=== PATIENT | male | born 1980 | race Two or more races ===

== ENCOUNTER 2016-08-28 07:54 | Emergency (ER) | payer OTHER ==
[~2016-08-28] VITALS: Ht 182.9 cm; Wt 78.0 kg
[2016-08-28 07:58] VITALS: Ht 182.9 cm; Wt 78.0 kg
[2016-08-28 08:52] LABS: BASOPHILS % 0.2 % (0.0-2.0); EOSINOPHILS # 0.3 10^3/ul (0.0-0.5); EOSINOPHILS % 5.5 % (0.0-7.0); HEMOGLOBIN 14.9 g/dl (14.0-18.0); LYMPHOCYTES # 1.5 10^3/ul (0.8-2.9); LYMPHOCYTES % 26.1 % (15.0-51.0); MEAN CORPUSCULAR HEMOGLOBIN 31.5 pg (29.0-33.0); MEAN CORPUSCULAR HGB CONC 35.5 g/dl (32.0-37.0); MEAN CORPUSCULAR VOLUME 88.8 fl (82.0-101.0); MEAN PLATELET VOLUME 10.6 fl (7.4-10.4); MONOCYTE # 0.5 10^3/ul (0.3-0.9); MONOCYTES % 8.4 % (0.0-11.0); NEUTROPHIL # 3.3 10^3/ul (1.6-7.5); NEUTROPHILS % 59.6 % (39.0-77.0); PLATELET COUNT 212 10^3/UL (140-415); RED BLOOD COUNT 4.73 10^6/ul (4.70-6.10); RED CELL DISTRIBUTION WIDTH 11.8 % (11.5-14.5); WHITE BLOOD COUNT 5.6 10^3/ul (4.8-10.8)
[2016-08-28 09:24] LABS: ALANINE AMINOTRANSFERASE 26 IU/L (13-69); ALBUMIN 3.9 g/dl (3.3-4.9); ALBUMIN/GLOBULIN RATIO 1.44; ALKALINE PHOSPHATASE 69 IU/L (42-121); ANION GAP 16 (8-16); ASPARTATE AMINO TRANSFERASE 16 IU/L (15-46); BLOOD UREA NITROGEN 9 mg/dl (7-20); CALCIUM 8.9 mg/dl (8.4-10.2); CARBON DIOXIDE 26 mmol/L (21-31); CHLORIDE 106 mmol/L (97-110); CREATININE 0.69 mg/dl (0.61-1.24); ETHANOL < 10.0 mg/dl; GLUCOSE 95 mg/dl (70-220); POTASSIUM 3.9 mmol/L (3.5-5.1); SODIUM 144 mmol/L (135-144); TOTAL PROTEIN 6.6 g/dl (6.1-8.1)
--- NOTE | 2016-08-28 09:38 | ERA ---
ER Documentation Chief Complaint Date/Time DATE: 08/28/16 TIME: 09:36 Chief Complaint PT SAYS " I FEEL LIKE HURTING MYSELF OR SOMEONE ELSE " HPI 36-year-old male unknown psychiatric diagnosis possibly bipolar disorder who presents to the emergency room with 24 hours of suicidal thoughts with a plan to jump into traffic. Patient denies any drugs or alcohol he states the symptoms are moderate to severe and requires hospitalization. He denies any fevers, chills, headache, chest pain, shortness of breath. ROS All systems reviewed and are negative except as per history of present illness. Allergies Allergies: Uncoded Allergies: NKDA (Allergy, 08/29/10) PMhx/Soc Medical and Surgical Hx: pt denies Medical Hx, pt denies Surgical Hx History of Surgery: No Anesthesia Reaction: No Hx Neurological Disorder: No Hx Respiratory Disorders: No Hx Cardiac Disorders: No Hx Psychiatric Problems: No Hx Miscellaneous Medical Probl: No Hx Alcohol Use: No Hx Substance Use: No Hx Tobacco Use: Yes Smoking Status: Current every day smoker FmHx Family History: No diabetes Physical Exam Vitals Vital Signs Date Time Temp Pulse Resp B/P Pulse Ox O2 Delivery O2 Flow Rate FiO2 08/28/16 07:58 98.1 78 18 122/67 98 Physical Exam General: Well developed, well nourished, no acute distress Head: Normocephalic, atraumatic. Eyes: Pupils equally reactive, EOM intact ENT: Moist mucous membranes Neck: Supple, no lymphadenopathy Respiratory: Lungs clear bilaterally, no distress Cardiovascular: RRR, no murmurs, rubs, or gallops Abdominal: Soft, non-tender, non-distended, no peritoneal signs : Deferred MSK: No edema, no unilateral swelling, 5/5 strength Neurologic: Alert and oriented, moving all extremities, normal speech, no focal weakness, no cerebellar signs Skin: No rash Psych: Flattened affect, avoiding eye contact, suicidal thoughts with plan Result Diagram: 08/28/1640 08/28/16 0840 Results 24 hrs Laboratory Tests Test 08/28/16 08:40 White Blood Count 5.610^3/ul Red Blood Count 4.7310^6/ul Hemoglobin 14.9g/dl Hematocrit 42.0% Mean Corpuscular Volume 88.8fl Mean Corpuscular Hemoglobin 31.5pg Mean Corpuscular Hemoglobin Concent 35.5g/dl Red Cell Distribution Width 11.8% Platelet Count 17912^3/UL Mean Platelet Volume 10.6fl Neutrophils % 59.6% Lymphocytes % 26.1% Monocytes % 8.4% Eosinophils % 5.5% Basophils % 0.2% Nucleated Red Blood Cells % 0.0/100WBC Neutrophils # 3.310^3/ul Lymphocytes # 1.510^3/ul Monocytes # 0.510^3/ul Eosinophils # 0.310^3/ul Basophils # 0.010^3/ul Nucleated Red Blood Cells # 0.010^3/ul Sodium Level 144mmol/L Potassium Level 3.9mmol/L Chloride Level 106mmol/L Carbon Dioxide Level 26mmol/L Anion Gap 16 Blood Urea Nitrogen 9mg/dl Creatinine 0.69mg/dl Glucose Level 95mg/dl Calcium Level 8.9mg/dl Total Bilirubin 0.0mg/dl Direct Bilirubin 0.00mg/dl Indirect Bilirubin 0.0mg/dl Aspartate Amino Transf (AST/SGOT) 16IU/L Alanine Aminotransferase (ALT/SGPT) 26IU/L Alkaline Phosphatase 69IU/L Total Protein 6.6g/dl Albumin 3.9g/dl Globulin 2.70g/dl Albumin/Globulin Ratio 1.44 Ethyl Alcohol Level < 10.0mg/dl Procedures/MDM LAB INTERPRETATION: No acute process MEDICAL DECISION MAKING: The patient's presentation is consistent with underlying psychiatric illness and likely exacerbation of this illness and/or psychosis. I have a much lower clinical concern for delirium or acute organic pathology such as toxicologic, metabolic, ischemic, intracranial hemorrhage, infectious process. However, we must rule this out prior to relying a diagnosis of underlying psychiatric illness. The patient's workup will include medical screening examination, laboratory analysis, and diagnostic imaging such as EKG, chest x-ray or CT brain as indicated. If the patient's medical examination and laboratory analysis do not reveal acute organic pathology the patient will be medically cleared for psychiatric evaluation. ER COURSE: The patient's laboratory analysis, diagnostic imaging do not suggest an acute organic pathology. At this time I believe the patient's presentation is very consistent with underlying psychiatric illness. The patient is medically cleared for psychiatric evaluation. I kept the patient and/or family informed of laboratory and diagnostic imaging results throughout the emergency room course. CONSULTATION: Psychiatric consultation: Telemetry medicine psychiatry has been consulted on this case to evaluate the patient for possible acute psychiatric illness that would require inpatient hospitalization. DISPOSITION PLAN: Pending psychiatric evaluation Departure Diagnosis: Primary Impression: Suicidal ideation Condition: PRITI Hein MD Aug 28, 2016 09:38
[2016-08-28 12:09] LABS: BARBITURATES Negative (NEGATIVE)
[2016-08-28 12:10] LABS: BENZODIAZEPINES Negative (NEGATIVE); CANNABINOIDS Positive (NEGATIVE); COCAINE Negative (NEGATIVE); OPIATES Negative (NEGATIVE)
--- NOTE | 2016-08-28 12:48 | PSY ---
Date/Time of Note Date/Time of Note DATE: 08/28/16 TIME: 12:44 Psychiatric Subjective Eval Consent Pt consented to telemedicine: Yes Subjective Evaluation Patient location: emergency Chief Complaint: PT SAYS " I FEEL LIKE HURTING MYSELF OR SOMEONE ELSE " Reason for consult: Suicidal Ideation History of present illness d/w Dr Pérez 36 yo single unemployed homeless male with hx BIpolar d/o presents to ED with active SI and a plan to run into traffic. Depressed, hopeless, helpless, sad, despondent due to homelessness. + command Ah telling him to kill himself, paranoia. No meds for 4 months, since the last admission. No VH. No HI Poor lseep, poor appetite, anxiety, anger. Past psychiatric history prior inpt Hospitalization: Suicidal Attempt(s) Family History denies Medical history Problems Medical Problems: (1) Suicidal ideation Status: Acute Allergies: Coded Allergies: No Known Allergy (Unverified , 08/28/16) Substance Abuse Substance abuse history: Yes Prior substance abuse treatmen: No Social History Marital status: single Level of education: HS DPA/Conservatorship: No Occupation/Residential: unemployed Psychiatric Objective Eval Mental Status Examination: Appearance: Disheveled Eye Contact: Fair Psychomotor Activity: Normal Behavior: Cooperative Speech: Clear AFFECT: Depressed Mood: Irritable Though Process: Linear Thought Content: Hallucinations Suicidal: Yes Homicidal: No On 72 hour hold: No Orientation: x4 Cognition: Alert Insight: Impared Judgement: Impared Laboratory Results Laboratory Tests Test 08/28/16 08:40 08/28/16 11:10 White Blood Count 5.610^3/ul Red Blood Count 4.7310^6/ul Hemoglobin 14.9g/dl Hematocrit 42.0% Mean Corpuscular Volume 88.8fl Mean Corpuscular Hemoglobin 31.5pg Mean Corpuscular Hemoglobin Concent 35.5g/dl Red Cell Distribution Width 11.8% Platelet Count 69001^3/UL Mean Platelet Volume 10.6fl Neutrophils % 59.6% Lymphocytes % 26.1% Monocytes % 8.4% Eosinophils % 5.5% Basophils % 0.2% Nucleated Red Blood Cells % 0.0/100WBC Neutrophils # 3.310^3/ul Lymphocytes # 1.510^3/ul Monocytes # 0.510^3/ul Eosinophils # 0.310^3/ul Basophils # 0.010^3/ul Nucleated Red Blood Cells # 0.010^3/ul Sodium Level 144mmol/L Potassium Level 3.9mmol/L Chloride Level 106mmol/L Carbon Dioxide Level 26mmol/L Anion Gap 16 Blood Urea Nitrogen 9mg/dl Creatinine 0.69mg/dl Glucose Level 95mg/dl Calcium Level 8.9mg/dl Total Bilirubin 0.0mg/dl Direct Bilirubin 0.00mg/dl Indirect Bilirubin 0.0mg/dl Aspartate Amino Transf (AST/SGOT) 16IU/L Alanine Aminotransferase (ALT/SGPT) 26IU/L Alkaline Phosphatase 69IU/L Total Protein 6.6g/dl Albumin 3.9g/dl Globulin 2.70g/dl Albumin/Globulin Ratio 1.44 Ethyl Alcohol Level < 10.0mg/dl Urine Opiates Screen Negative Urine Barbiturates Negative Urine Amphetamines Screen Negative Urine Benzodiazepines Screen Negative Urine Cocaine Screen Negative Urine Cannabinoids Positive Assessment and Plan Assessment/Diagnosis [place] I: BIPOLAR I DEPRESSED WITH PSYCHOSIS [place] II: DEFERED [place] III: NAD [place] IV: SEVERE [place] V: GAF 25 Recommendation/Plan Medication Management GEODON 20 MG PO BID Psychotherapy DEFER TO INPT Pt. Caregiver/Family Education N/A Follow-up/Disposition TRANSFER TO INPT PSYCH 5150 Recommendation: SUNDAR ROGEL MD Aug 28, 2016 12:48
[2016-08-28] MEDS: ZIPRASIDONE 20 MG CAP PO SCH ×2 (13:30→21:49)
[2016-08-28 21:50] VITALS: BP 130/68; PULSE 81; RESP 16
== END 2016-08-28 21:51 ==
LOC: E/R 07:54
DX: R45.851 Suicidal ideations (principal); F17.210 Nicotine dependence, cigarettes, uncomplicated
CPT/HCPCS: 36415; 80053; 80306; 80307; 85025; Z7502; Z7610